=== PATIENT | male | born 1995 | race Caucasian/White ===

== ENCOUNTER 2017-01-27 12:01 | Emergency (ER) | payer OTHER ==
[~2017-01-27] VITALS: Ht 170.2 cm; Wt 80.1 kg
[2017-01-27 12:03] VITALS: BP 138/68
== END 2017-01-27 13:30 | disposition left against medical advice (07) ==
LOC: M ED 12:01
DX: T30.0 Burn of unspecified body region, unspecified degree (principal); X58.XXXA Exposure to other specified factors, initial encounter; Z53.29 Procedure and treatment not carried out because of patient's decision for other reasons